=== PATIENT | female | born 1965 | race Caucasian/White ===

== ENCOUNTER 2016-09-05 15:52 | Emergency (ER) | payer OTHER ==
[~2016-09-05] VITALS: Ht 175.3 cm; Wt 81.8 kg
[~2016-09-05 15:52] MED LIST: MEDR10TA PO
[2016-09-05 16:01] VITALS: BP 148/105; PULSE 84; RESP 22; O2SAT 95
[2016-09-05] MEDS ORDERED: HYDROmorphone 1 mg/mL Inj ONE (16:03)
[2016-09-05] MEDS ORDERED: Ondansetron 2 mg/mL 2 mL Inj ONE (16:04)
[2016-09-05] MEDS ORDERED: HYDROmorphone 1 mg/mL Inj IVPUSH ONE (16:05)
[2016-09-05] MEDS ORDERED: Ondansetron 2 mg/mL 2 mL Inj IVPUSH ONE (16:05)
--- NOTE | 2016-09-05 16:07 | ED.REPORT ---
HPI-Extremity Problem Upper Date of Service Sep 05, 2016 ED Provider: Davion Sloan MD Pt is a 51 y.o. female who presents to the ED via EMS c/o right shoulder pain onset prior to arrival. 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 She denies hitting her head, LOC, or numbness and tingling in her extremities. She also denies any prior injury to her right shoulder. Pt states she is unable to move her right arm due to pain. Nursing Notes Stated Complaint: R/SHOULDER PAIN Chief Complaint: Extremity Trauma Nursing Notes Reviewed: Yes Allergies: Coded Allergies: No Known Allergies (Verified , 09/05/16) Uncoded Allergies: CATS (Adverse Reaction, Unknown, 05/21/06) Scheduled Medroxyprogesterone-Expunged Drug, Do Not Gordon (Provera-Expunged Drug, Do Not Renew!) 10 Mg Tablet 10 MG PO DAILY Scheduled PRN Ondansetron ODT (Zofran ODT) 4 Mg Tablet 4 MG PO Q4H PRN PRN For Nausea oxyCODONE-Acetaminophen 5-325 mg (oxyCODONE-Acetaminophen 5-325 mg) 1 Each Tablet 1 TAB PO Q4H PRN PRN For Pain General Time Seen by MD: 16:00 Chief Complaint Shoulder injury right Hx Obtained From: Patient Arrived By: Ambulance Onset Occurred: Just prior to arrival Symptom Duration: Since onset Caused by: Accidental, Fall on ground, Slipped Context: Occurred at: Workplace Location: : Shoulder right Quality: Painful Severity: Current: Severe Exacerbated by: Range of motion Recent Healthcare: No recent doctor visit, No recent hospitalization Similar Sx Previous: No Past Medical History Past Medical History None reported Past Surgical History Reports: Hysterectomy Ambulatory Status Independent Review of Systems Musculoskeletal: Reports: Joint pain (Right shoulder), Joint swelling (Right shoulder) Neurologic: Denies: Change LOC Complete sys rev & neg: except as marked. Physical Exam Initial Vital Signs Vital Signs (First) Date Time Temp Pulse Resp B/P Pulse Ox O2 Delivery O2 Flow Rate FiO2 09/05/16 16:01 36.9 84 22 148/105 95 Room Air Initial VS: Reviewed Head / Eyes: Atraumatic, Normocephalic, PERRL Respiratory: Breath sounds normal, No respiratory distress Cardiovascular: Regular rate & rhythm, Intact distal pulses Abdomen / GI: Soft, Non-tender, No distention Lower Extremities: Vascular intact, Neuro intact Skin: Warm, Dry, No cyanosis Neurologic: Alert, Oriented, Nonfocal Psychiatric: Mood/affect normal, Behavior normal, Normal thought content General/Constitutional: Awake, Alert, Well appearing, Well developed, Well hydrated, Well nourished, Not toxic appearing Upper Extremity / MS: No deformity, Neurologic intact, Vascular intact Upper Ext Brief Normals: Shoulder L exam normal, Arm R exam normal Right Shoulder: Positive: ROM reduced (due to pain), Swelling present..., Tenderness present... (Lateral ), Negative: Deformity present, Pulses distal absent, Pulses distal decreased Able to flex and extend fingers. Sensation intact over right deltoid and right arm. Interpretation & Diagnostics X-Ray Interpretation Xray Interpretation: IMPRESSION: Displaced proximal humeral neck fracture. Dictated by: Isadora Zhu MD, PhD on 09/05/2016 at 16:36 Approved by: Isadora Zhu MD, PhD on 09/05/2016 at 16:36 X-Ray Ordered: Shoulder right Re-Eval/Medical Decision Med Decision/Clinical Course In summary, the patient is a 51-year-old female who presents with right shoulder pain after a ground-level fall. Plain films were obtained as above and demonstrated a mildly displaced proximal humerus fracture. The patient was noted to be neurovascularly intact without any evidence of other associated injury, compartment syndrome, neurologic deficit or head trauma. Her pain was adequately controlled with intra-penis hydromorphone. The patient's injuries were discussed with the orthopedic surgeon who agreed to see her on Thursday of next week. She was placed in a sling in the meantime. She is prescribed oxycodone for pain. Follow-up and return precautions were given in detail she was discharged in stable condition. Of note, the orthopedic surgeon requested CT imaging of the shoulder which was obtained prior to discharge. Source of Hx: Old records Re-Evaluation/Progress : Time of Eval: 18:01 Re-Evaluation/Progress Note: Pt rechecked. Discussed plan for discharge, pt understands and agrees with plan. Consultation : Referral / Consult Name: Alden Bonilla MD Consulted With: Orthopedic Call Returned at: 17:18 Staff Editor: Will see patient, Will see in office Note: Discussed pt condition. Dr. Bonilla requested a CT and will see pt in his office Thursday. Counseled Regarding: Diagnosis, Lab results, Need for follow-up, When/why to return to ED Discharge & Departure Impression: Primary Impression: Fracture of humeral head, right, closed Encounter type: initial encounter Qualified Code: S42.291A - Other displaced fracture of upper end of right humerus, initial encounter for closed fracture Additional Impression: Fall from ground level Disposition: Home Discharge Condition All VS Reviewed: Yes Condition: Stable Additional Instructions: Thank you for seeking care at emergency room. You have a fracture of your right humeral head. Our primary goal today in the ED was to evaluate you for any life-threatening conditions. Your evaluation was reassuring. You will be discharged with a prescription for oxycodone for pain, please take as directed. Please wear sling at all times for comfort and call first thing Thursday to arrange for a follow-up appointment with the orthopedic surgeons. You should return to the ED immediately if you develop increasing pain, numbness , tingling, swelling of your arm, discoloration of your fingertips, fevers, vomiting, cough, shortness of breath, chest pain, lightheadedness, weakness or any other concerning signs or symptoms. Thank you for letting us partake in your care today. Narcotic Pain Medicine You have been prescribed a narcotic for pain relief. These drugs are usually combined with acetaminophen (Tylenol#3, Percocet, Darvocet, Anexsia, Vicodin) or aspirin (Empirin#3, Percodan, Synalogs-DC) for increased effect. Narcotics act on the central nervous system to reduce pain; they also impair mental alertness and physical abilities. We advise you not to drink alcohol, drive a car, or operate dangerous equipment when you are taking theses drugs. You can lessen stomach irritation from your medicine by taking it with meals or a full glass of water. Common side effects of narcotics are: Nausea and vomiting, heartburn, consitpation, dizziness, sleepiness, and mood changes. If you have bothersome side effects or symptoms of an allergic reaction (itching, hives, rash), stop taking your medicine and call your doctor or the emergency room right away. Please keep your narcotic medicine well out of the reach of children. Referrals: Alden Bonilla MD 2-3 days Scribe Attestation Portions of this note were transcribed by Emily Perez. I, Dr. Sloan personally performed the history, physical exam and medical decision-making; I reviewed and confirmed the accuracy of the information in the transcribed note. Signed by: Cruzito Live, 09/05/2016 and 1802. copies to: Alden Bonilla MD, Beck O MD Sep 05, 2016 16:07 EMILY PEREZ Sep 05, 2016 16:30
[2016-09-05] MEDS ORDERED: OXYC1TAB24 PO (16:33)
--- NOTE | 2016-09-05 16:38 | DRSVH ---
PROCEDURE: X-RAY RIGHT SHOULDER, MINIMUM TWO VIEWS ([id number]) INDICATIONS: fall TECHNIQUE: 2 views of the shoulder were acquired. COMPARISON: None. FINDINGS: Bones: Mildly displaced proximal humerus fracture noted. Visualized ribs appear intact. Soft tissues: No suspicious soft tissue calcifications. IMPRESSION: Displaced proximal humeral neck fracture. Dictated by: Isadora Zhu MD, PhD on 09/05/2016 at 16:36 Approved by: Isadora Zhu MD, PhD on 09/05/2016 at 16:36
[2016-09-05] MEDS ORDERED: HYDROmorphone 0.5 mg/0.5 mL iSecure Syringe IVPUSH ONE (18:00)
[2016-09-05] MEDS ORDERED: ONDA4TAB9 PO (18:06)
--- NOTE | 2016-09-05 18:19 | DRSVH ---
PROCEDURE: CT SHOULDER RIGHT W/O CONTRAST ([id number]) INDICATIONS: fracture TECHNIQUE: Noncontrast 1-1.5 mm thick sections acquired from the acromioclavicular joint to the inferior scapula , with coronal and sagittal reformatting. COMPARISON: [facility], CR, XR SHOULDER MIN 2VW RT, 09/05/2016, 16:03. FINDINGS: Image quality: Excellent. Bones: There is an acute fracture of the proximal right humerus. No fractures of the scapula visualiz ed ribs or clavicle are seen. The right humeral fracture is across the neck with the head displaced slightly posteriorly and very m inimal anterior angulation at the fracture site. In the semi-coronal view no angulation or displaceme nt is seen. Soft tissues: Did not reveal any abnormality. IMPRESSION: Right humeral neck fracture with slight posterior displacement of the humeral head on the shaft and slight anterior angulation at the fracture site. Dictated by: John Paul Bucio M.D. on 09/05/2016 at 18:17 Approved by: John Paul Bucio M.D. on 09/05/2016 at 18:17
== END 2016-09-05 18:30 | disposition home or self-care (01) ==
LOC: SED 15:52 → EDBD 15:52 → EDUNIT# 15:52 → SED 18:30
DX: S42.291A Other displaced fracture of upper end of right humerus, initial encounter for closed fracture (principal); W01.0XXA Fall on same level from slipping, tripping and stumbling without subsequent striking against object, initial encounter; Y92.513 Shop (commercial) as the place of occurrence of the external cause; Y93.89 Activity, other specified; Y99.0 Civilian activity done for income or pay
CPT/HCPCS: 73030; 73200; 96374; 96375; 99285; J1170; J2405